=== PATIENT | female | born 1935 | race Asian ===

== ENCOUNTER 2020-03-18 12:55 | Outpatient (CLI) | payer OTHER ==
[~2020-03-18] VITALS: Ht 165.1 cm; Wt 70.3 kg
[2020-03-18 13:15] LABS: PLATELET COUNT 177 K/uL (152-353)
[2020-03-18 13:20] LABS: POTASSIUM 3.6 mmol/L (3.6-5.2)
[2020-03-18 15:00] VITALS: BP 170/80; TEMP 98.4
== END 2020-03-18 15:00 | disposition home or self-care (01) ==
LOC: INF 12:55
PROVIDERS: ATTEND Internal Medicine
DX: U07.1 COVID-19 (principal); R73.9 Hyperglycemia, unspecified
CPT/HCPCS: 36591; 80053; 85027; 96365